=== PATIENT | female | born 1935 | race Caucasian/White ===

== ENCOUNTER 2021-01-30 12:14 | Emergency (ER) | payer OTHER ==
[~2021-01-30] VITALS: Ht 152.4 cm; Wt 57.2 kg
[2021-01-30] MEDS ORDERED: METFORMIN HCL500 MG PO (12:42)
[2021-01-30] MEDS ORDERED: HYDROCODON-ACE1 EA10 PO (13:19)
== END 2021-01-30 14:54 | disposition home or self-care (01) ==
LOC: ED 12:14
PROC: 2W3CX1Z Immobilization of Right Lower Arm using Splint (ICD-10-PCS; principal; 2021-01-30)
DX: S52.501A Unspecified fracture of the lower end of right radius, initial encounter for closed fracture (principal); E11.9 Type 2 diabetes mellitus without complications; Z95.1 Presence of aortocoronary bypass graft; Z79.84 Long term (current) use of oral hypoglycemic drugs; W18.30XA Fall on same level, unspecified, initial encounter
CPT/HCPCS: 29125; 73110; 99283-25; A9270